=== PATIENT | male | born 1960 | race African-American/Black ===

== ENCOUNTER 2018-11-11 01:04 | Emergency (ER) | payer OTHER ==
--- NOTE | 2018-11-11 01:16 | PDOC ---
History of Present Illness - General Stated Complaint: METHADONE TREATMENT NEEDED Time Seen by Provider: 11/11/18 01:16 - History of Present Illness Initial Comments: 11/11/18 01:16 Mr. Lees is a 58 yo male w/ HIV, DM, in treatment with methadone who presents for evaluation of 1-2 day history of agitation with diarrhea. Patient reports he has not had his methadone in 3 days, prompting his symptoms. Denies any other symptoms. The patient denies chest pain, shortness of breath, headache and dizziness. Denies fever, chills, nausea, vomit, and constipation. Denies dysuria, frequency , urgency and hematuria. Past History - Past Medical History Allergies/Adverse Reactions: Allergies Allergy/AdvReac Type Severity Reaction Status Date / Time No Known Allergies Allergy Verified 08/18/17 11:10 Home Medications: Ambulatory Orders Unobtainable 08/18/17 COPD: No Diabetes: Yes - Suicide/Smoking/Psychosocial Hx Smoking History: Never smoked Review of Systems - Review of Systems Comments:: 11/11/18 01:16 GENERAL/CONSTITUTIONAL: No fever or chills. No weakness. HEAD, EYES, EARS, NOSE AND THROAT: No change in vision. No ear pain or discharge. No sore throat. CARDIOVASCULAR: No chest pain or shortness of breath RESPIRATORY: No cough, wheezing, or hemoptysis. GASTROINTESTINAL: +Diarrhea for the last day. No nausea, vomiting, or constipation. GENITOURINARY: No dysuria, frequency, or change in urination. MUSCULOSKELETAL: No joint or muscle swelling or pain. No neck or back pain. SKIN: No rash NEUROLOGIC: +Agitation/restlessness over last 1-2 days. No headache, vertigo, loss of consciousness, or change in strength/sensation. ENDOCRINE: No increased thirst. No abnormal weight change HEMATOLOGIC/LYMPHATIC: No anemia, easy bleeding, or history of blood clots. ALLERGIC/IMMUNOLOGIC: No hives or skin allergy. *Physical Exam - Physical Exam Comments: 11/11/18 01:16 GENERAL: +Patient extremely restless appearing. Awake, alert, and fully oriented , in no acute distress HEAD: No signs of trauma, normocephalic, atraumatic EYES: PERRLA, EOMI, sclera anicteric, conjunctiva clear ENT: Auricles normal inspection, hearing grossly normal, nares patent, oropharynx clear without exudates. Moist mucosa NECK: Normal ROM, supple, no lymphadenopathy, JVD, or masses LUNGS: No distress, speaks full sentences, clear to auscultation bilaterally HEART: Regular rate and rhythm, normal S1 and S2, no murmurs, rubs or gallops, peripheral pulses normal and equal bilaterally. ABDOMEN: Soft, nontender, normoactive bowel sounds. No guarding, no rebound. No masses EXTREMITIES: Normal inspection, Normal range of motion, no edema. No clubbing or cyanosis. NEUROLOGICAL: Cranial nerves II through XII grossly intact. Normal speech, normal gait, no focal sensorimotor deficits SKIN: Warm, Dry, normal turgor, no rashes or lesions noted. Medical Decision Making - Medical Decision Making 11/11/18 01:26 Mr. Lees is a 58 yo male w/ pmh as described who presents for evaluation of methadone withdrawal. Patient given 20mg methadone with improvement of symptoms. Discharging patient to home for further outpatient methadone treatment. *DC/Admit/Observation/Transfer Diagnosis at time of Disposition: Methadone dependence - Discharge Dispostion Disposition: HOME - Referrals - Patient Instructions Printed Discharge Instructions: Getting Treatment for Drug Addiction Additional Instructions: You were evaluated today in the emergency room for your methadone withdrawal. Please follow-up with methadone clinic tomorrow as discussed to resume your normal dosing. Follow-up with primary care provider on Monday for further evaluation. Return to ER if any pain, fever, chills, or other concerning symptoms. - Post Discharge Activity
--- NOTE | 2018-11-11 01:17 | PDOC ---
Attending Attestation - Resident Resident Name: David Araujo - ED Attending Attestation I have performed the following: I have examined & evaluated the patient, The case was reviewed & discussed with the resident, I agree w/resident's findings & plan - HPI HPI: 11/11/18 01:24 Pt hasnt had his methadone in 3 days and now comes for some. He has no other complaints. - Physicial Exam PE: 11/11/18 02:11 Agree with resident exam - Medical Decision Making 11/11/18 02:11 Pt will sent home with outpatient methadone clinic f/u
[2018-11-11] MEDS ORDERED: METHADONE HCL 10 MG TABLET PO ONE (01:22)
[2018-11-11] MEDS ORDERED: METHADONE HCL 10 MG TABLET ONE (01:28)
[2018-11-11 01:46] VITALS: BP 146/89; PULSE 98; TEMP 97.9; BMI 25.0
== END 2018-11-11 02:46 | disposition home or self-care (01) ==
LOC: JER 01:04
DX: F11.20 Opioid dependence, uncomplicated (principal); Z21 Asymptomatic human immunodeficiency virus [HIV] infection status
CPT/HCPCS: 99282-25

== ENCOUNTER 2018-11-30 11:50 | Inpatient (IN) | payer OTHER ==
[2018-11-30 12:24] VITALS: BMI 24.4
--- NOTE | 2018-11-30 14:04 | HP ---
COWS - Scale Resting Pulse: 1= [place] 81-100 Sweatin= Chills/Flushing Restless Observation: 0= Sits Still Pupil Size: 1= Pupils >than Normal Bone or Joint Aches: 2= Severe Diffuse Aches Runny Nose/ Eye Tearin= Runny Nose/Eyes GI Upset > 30mins: 0= None Tremor Observation: 2= Slight Tremor Visible Yawning Observation: 1= 1-2x During Session Anxiety or Irritability: 2=Irritable/Anxious Goose Flesh Skin: 0=Smooth Skin COWS Score: 12 CIWA Score - Admission Criteria [facility] Guidelines: Admission for Medically Managed Detox: Requires at least one of the followin. CIWA greater than 12 2. Seizures within the past 24 hours 3. Delirium tremens within the past 24 hours 4. Hallucinations within the past 24 hours 5. Acute intervention needed for co occurring medical disorder 6. Acute intervention needed for co occurring psychiatric disorder 7. Severe withdrawal that cannot be handled at a lower level of care (continued vomiting, continued diarrhea, abnormal vital signs) requiring intravenous medication and/or fluids 8. Admission [facility] Chief Complaint: PATIENT PRESENTS WITH HEROIN WITHDRAWAL SX. Allergies/Adverse Reactions: Allergies Allergy/AdvReac Type Severity Reaction Status Date / Time No Known Allergies Allergy Verified 11/11/18 01:43 History of Present Illness: PATIENT PRESENTS WITH HEROIN WITHDRAWAL SX. [facility] AND WAS A PATIENT AT [facility] UNTIL 3 WEEKS AGO. PATIENT STATES DOSE OF MTD 70MG BUT HAS NOT TAKEN MEDICATION FROM CLINIC X 3 WEEKS. PATIENT CURRENTLY SNIFFING HEROIN, UP TO 3-4 BAGS DAILY, LAST TIME HE USED WAS THIS MORNING. UDS + OPI. PATIENT REQUESTS TO RESTART MTD PROGRAM ONCE HE DETOXES OFF HEROIN. PATIENT INITIALLY STARTED USING HEROIN IV IN THE 1970S. HAS NOT USED IVDA X YEARS. PATIENT DENIES HX OF HEP. + HX OF HIV. REPORTS COMPLIANCE WITH MEDICATION BUT DOES NOT HAVE ANY MEDICATION WITH HIM. PATIENT REPORTS HX OF DM AND HTN. NAME OF MEDICATION AND PHARMACY UNABLE TO BE OBTAINED BY PATIENT. STATES HIS MEDS ARE DELIVERED TO HIM AND DOES NOT KNOW NAME OF PHARMACY. PATIENT DENIES SI/HI AND SUICIDE ATTEMPTS. PATIENT DENIES HX OF SEIZURES AND OD. + H/O BLACK OUTS. Exam Limitations: No Limitations - Ebola screening Have you traveled outside of the country in the last 21 days: No Have you had contact with anyone from an Ebola affected area: No Have you been sick,other than usual withdrawal symptoms: No Do you have a fever: No - Review of Systems Constitutional: Chills, Changes in sleep, Unintentional Wgt. Loss EENT: reports: Nose Congestion Respiratory: reports: No Symptoms reported Cardiac: reports: No Symptoms Reported GI: reports: Poor Appetite, Poor Fluid Intake : reports: No Symptoms Reported Musculoskeletal: reports: Back Pain, Muscle Pain Integumentary: reports: No Symptoms Reported Neuro: reports: Tremors Endocrine: reports: Unexplained Weight Loss Hematology: reports: No Symptoms Reported Psychiatric: reports: Anxious, other (REPORTS DATE 12/02/18.) Patient History - Patient Medical History Hx Anemia: No Hx Asthma: No Hx Chronic Obstructive Pulmonary Disease (COPD): No Hx Cancer: No Hx Cardiac Disorders: No Hx Congestive Heart Failure: No Hx Hypertension: Yes Hx Hypercholesterolemia: No Hx Pacemaker: No HX Cerebrovascular Accident: No Hx Seizures: No Hx Dementia: No Hx Diabetes: Yes Hx Gastrointestinal Disorders: No Hx Liver Disease: No Hx Genitourinary Disorders: No Hx Sexually Transmitted Disorders: No Hx Renal Disease (ESRD): No Hx Thyroid Disease: No Hx Human Immunodeficiency Virus (HIV): Yes (DX 1985, DID NOT PROVIDE MEDICATIONS ) Hx Hepatitis C: No Hx Depression: No Hx Suicide Attempt: No Hx Bipolar Disorder: No Hx Schizophrenia: No - Patient Surgical History Past Surgical History: No Anesthesia Reaction: No - PPD History Previous Implant?: Yes Documented Results: Negative w/o proof PPD to be Administered?: Yes - Smoking Cessation Smoking history: Never smoked Have you smoked in the past 12 months: No Hx Chewing Tobacco Use: No Initiated information on smoking cessation: No - Substance & Tx. History Hx Alcohol Use: No Hx Substance Use: Yes Substance Use Type: Heroin Hx Substance Use Treatment: Yes - Substances Abused Heroin Route: Inhalation Frequency: Daily Amount used: 3 BAGS Age of first use: 20 Date of Last Use: 11/30/18 Family Disease History - Family Disease History Family Disease History: Diabetes: Mother (ALIVE AND WELL) Admission Physical Exam BHS - Vital Signs Vital Signs: Vital Signs - 24 hr 11/30/18 12:22 Temperature 97.4 F L Pulse Rate 81 Respiratory 20 Rate Blood Pressure 115/72 - Physical General Appearance: Yes: No Apparent Distress, Appropriately Dressed, Thin, Tremorous, Anxious HEENTM: Yes: EOMI, Hearing grossly Normal, Normocephalic, Normal Voice, YVETTE, Pharynx Normal, Nasal Congestion Respiratory: Yes: Chest Non-Tender, Lungs Clear, Normal Breath Sounds, No Respiratory Distress, No Accessory Muscle Use Neck: Yes: No masses,lesions,Nodules, Supple, Trachea in good position Breast: Yes: Breast Exam Deferred Cardiology: Yes: Regular Rhythm, Regular Rate, S1, S2 Abdominal: Yes: Normal Bowel Sounds, Non Tender, Soft Genitourinary: Yes: Within Normal Limits Back: Yes: Normal Inspection, Muscle Spasm Musculoskeletal: Yes: full range of Motion, Gait Steady, Back pain, Muscle Pain Extremities: Yes: Normal Range of Motion, Tremors, Other (HYPIGMENTATION OF LOWER LEGS) Neurological: Yes: inpatient services rn II-XII NML intact, Fully Oriented, Alert, Motor Strength 5/5, Normal Response, Other (ANXIOUS) Integumentary: Yes: Normal Color, Dry, Warm, Other (HYPERPIGMENTED SKIN CHANGES OF LOWER LEGS) Lymphatic: Yes: Within Normal Limits Cleared for Admission [facility] - Detox or Rehab [facility] Level of Care: Medically Managed Detox Regimen/Protocol: Methadone [facility] Breath Alcohol Content Breath Alcohol Content: 0 Urine Drug Screen - Results Drug Screen Negative: No Urine Drug Screen Results: OPI-Opiates Inpatient Rehab Admission - Rehab Decision to Admit Inpatient rehab admission?: No
[2018-11-30] MEDS ORDERED: P-EPHED 60MG/TRIPROLIDI 2.5MG TABLET PO PRN (14:13)
[2018-11-30] MEDS ORDERED: LOPERAMIDE HCL 2 MG CAPSULE PO PRN (14:13)
[2018-11-30] MEDS ORDERED: MAG HYDROX/AL HYDROX/SIMETH 30 ML UNIT-DOSE CUP PO PRN (14:13)
[2018-11-30] MEDS ORDERED: MAGNESIUM HYDROX 2400MG/30ML ORAL SUSPENSION 30 ML CUP PO PRN (14:13)
[2018-11-30] MEDS ORDERED: MENTHOL/PHENOL 1 EACH UD MM PRN (14:13)
[2018-11-30] MEDS ORDERED: MAGNESIUM CITRATE 300 ML BOTTLE PO PRN (14:13)
[2018-11-30] MEDS ORDERED: IBUPROFEN 400 MG TABLET (FP) PO PRN (14:13)
[2018-11-30] MEDS ORDERED: guaiFENesin/D-METHORPHAN HB 10 ML UNIT-DOSE CUPS PO PRN (14:13)
[2018-11-30] MEDS ORDERED: hydrOXYzine PAMOATE 50 MG CAPSULE (FP) PO PRN (14:13)
[2018-11-30] MEDS ORDERED: ACETAMINOPHEN 325 MG TABLET (FP) PO PRN (14:13)
[2018-11-30] MEDS ORDERED: METHADONE HCL 10 MG TABLET (FOR DETOX USE ONLY) PO ONE ×2 (17:00→23:00)
[2018-11-30] MEDS: diazePAM 5 MG TABLET PO PRN ×2 (17:44→22:05)
[2018-11-30] MEDS: INSULIN SLIDING SCALE (NOVOLOG) 1 VIAL SQ SCH ×2 (17:50→21:01)
[2018-11-30] MEDS: THIAMINE HCL 100 MG TABLET (FP) PO SCH (22:04)
[2018-12-01] MEDS: INSULIN SLIDING SCALE (NOVOLOG) 1 VIAL SQ SCH ×4 (07:45→22:34)
[2018-12-01] MEDS ORDERED: METHADONE HCL 10 MG TABLET (FOR DETOX USE ONLY) PO ONE (10:00)
[2018-12-01] MEDS: diazePAM 5 MG TABLET PO PRN ×2 (10:12→22:32)
[2018-12-01] MEDS: PRENATAL VITAMINS W/ FOLIC ACID TABLET (FP) PO SCH (10:13)
[2018-12-01 11:20] LABS: ALBUMIN 4.1 g/dl (3.4-5.0); ALK PHOS 56 U/L (45-117); ANION GAP 4 MMOL/L (8-16); BILIRUBIN,TOTAL 0.5 mg/dL (0.2-1); BLOOD UREA NITROGEN 14 mg/dL (7-18); CALCIUM 8.9 mg/dL (8.5-10.1); CHLORIDE 107 mmol/L (98-107); CO2 30 mmol/L (21-32); CREATININE 1.2 mg/dL (0.55-1.3); GLUCOSE,RANDOM 99 mg/dL (74-106); POTASSIUM 4.4 mmol/L (3.5-5.1); SGOT/AST 11 U/L (15-37); SGPT/ALT 13 U/L (13-61); SODIUM 141 mmol/L (136-145); TOT PROT 7.4 g/dl (6.4-8.2)
[2018-12-01 11:38] LABS: HEMATOCRIT 34.3 % (35.4-49); HEMOGLOBIN 11.7 GM/dL (11.7-16.9); MCH 30.1 pg (25.7-33.7); MCHC 34.2 g/dl (32.0-35.9); MEAN CELL VOLUME 88.1 fl (80-96); MEAN PLT VOLUME 11.1 fl (7.5-11.1); PLATELET COUNT 122 K/MM3 (134-434); RBC 3.89 M/mm3 (4.00-5.60); RDW 14.2 % (11.9-15.9); WHITE BLOOD COUNT 4.6 K/mm3 (4.0-10.0)
[2018-12-01] MEDS ORDERED: FLU VACCINE QUAD 60 MCG/0.5 ML (MDV 18-19) IM ONE (12:00)
--- NOTE | 2018-12-01 13:22 | EKG ---
Test Reason : Blood Pressure : / mmHG Vent. Rate : 061 BPM Atrial Rate : 061 BPM P-R Int : 130 ms QRS Dur : 088 ms QT Int : 410 ms P-R-T Axes : 069 036 030 degrees QTc Int : 412 ms NORMAL SINUS RHYTHM NORMAL ECG NO PREVIOUS ECGS AVAILABLE Confirmed by DEA MENDENHALL MD ([id number]) on 12/01/2018 1:21:50 PM Referred By: Confirmed By:DEA MENDENHALL MD
--- NOTE | 2018-12-01 14:08 | PN ---
BHS COWS - Scale Resting Pulse: 0= [place] 80 or Below Sweatin= Chills/Flushing Restless Observation: 1= Difficult to Sit Still Pupil Size: 0= Normal to Room Light Bone or Joint Aches: 2= Severe Diffuse Aches Runny Nose/ Eye Tearin= Nasal Congestion GI Upset > 30mins: 0= None Tremor Observation of Outstretched Hands: 2= Slight Tremor Visible Yawning Observation: 1= 1-2x During Session Anxiety or Irritability: 2=Irritable/Anxious Goose Flesh Skin: 0=Smooth Skin COWS Score: 10 BHS Progress Note (SOAP) Subjective: Tremors, Anxious, Nasal Congestion, Body Aches. Objective: PATIENT A & O X 3, OBSERVED AMBULATING ON UNIT. IN NO ACUTE DISTRESS. 12/01/18 14:09 Vital Signs Temperature 97.2 F L 12/01/18 09:25 Pulse Rate 55 L 12/01/18 09:25 Respiratory Rate 18 12/01/18 09:25 Blood Pressure 131/82 12/01/18 09:25 O2 Sat by Pulse Oximetry (%) Laboratory Tests 11/30/18 11/30/18 12/01/18 15:43 17:46 06:00 WBC 4.6 RBC 3.89 L Hgb 11.7 Hct 34.3 L MCV 88.1 MCH 30.1 MCHC 34.2 RDW 14.2 Plt Count 122 L MPV 11.1 Sodium Potassium Chloride Carbon Dioxide Anion Gap BUN Creatinine Creat Clearance w eGFR POC Glucometer 101 141 Random Glucose Calcium Total Bilirubin AST ALT Alkaline Phosphatase Total Protein Albumin RPR Titer 12/01/18 12/01/18 12/01/18 06:00 06:00 07:10 WBC RBC Hgb Hct MCV MCH MCHC RDW Plt Count MPV Sodium 141 Potassium 4.4 Chloride 107 Carbon Dioxide 30 Anion Gap 4 L BUN 14 Creatinine 1.2 Creat Clearance w eGFR > 60 POC Glucometer 102 Random Glucose 99 Calcium 8.9 Total Bilirubin 0.5 AST 11 L ALT 13 Alkaline Phosphatase 56 Total Protein 7.4 Albumin 4.1 RPR Titer Nonreactive 12/01/18 11:41 WBC RBC Hgb Hct MCV MCH MCHC RDW Plt Count MPV Sodium Potassium Chloride Carbon Dioxide Anion Gap BUN Creatinine Creat Clearance w eGFR POC Glucometer 324 Random Glucose Calcium Total Bilirubin AST ALT Alkaline Phosphatase Total Protein Albumin RPR Titer LABS NOTED. Assessment: 12/01/18 14:10 WITHDRAWAL SYMPTOMS. ANEMIA. THROMBOCYTOPENIA. 12/01/18 14:12 Plan: CONTINUE DETOX. INCREASE DAILY PO FLUID INTAKE. PATIENT IS CURRENTLY RECEIVING DAILY MVI CONTAINING B VITAMINS AND IRON WHILE ADMITTED FOR DETOX.
[2018-12-01] MEDS: MINERAL OIL/PETROLAT/WATER TOPICAL CREAM 454 GM JAR TP SCH ×2 (14:14→22:34)
[2018-12-01] MEDS: THIAMINE HCL 100 MG TABLET (FP) PO SCH (22:32)
[2018-12-02] MEDS: INSULIN SLIDING SCALE (NOVOLOG) 1 VIAL SQ SCH ×5 (06:14→22:11)
[2018-12-02] MEDS ORDERED: METHADONE HCL 5 MG TABLET (FOR DETOX USE ONLY) PO ONE (10:00)
[2018-12-02] MEDS: PRENATAL VITAMINS W/ FOLIC ACID TABLET (FP) PO SCH (10:16)
[2018-12-02] MEDS: diazePAM 5 MG TABLET PO PRN (10:17)
[2018-12-02] MEDS: MINERAL OIL/PETROLAT/WATER TOPICAL CREAM 454 GM JAR TP SCH ×2 (11:54→22:10)
--- NOTE | 2018-12-02 15:32 | PN ---
BHS COWS - Scale Resting Pulse: 0= [place] 80 or Below Sweatin= Chills/Flushing Restless Observation: 0= Sits Still Pupil Size: 1= Pupils >than Normal Bone or Joint Aches: 1= Mild Discomfort Runny Nose/ Eye Tearin= Nasal Congestion GI Upset > 30mins: 1= Stomach Cramp Tremor Observation of Outstretched Hands: 1= Tremor [place], Not Seen Yawning Observation: 1= 1-2x During Session Anxiety or Irritability: 1=Feels Anxious/Irritable Goose Flesh Skin: 0=Smooth Skin COWS Score: 8 BHS Progress Note (SOAP) Subjective: body aches joints pain tremor sweating Objective: 12/02/18 15:31 Vital Signs Temperature 98.2 F 12/02/18 09:22 Pulse Rate 58 L 12/02/18 09:22 Respiratory Rate 20 12/02/18 09:22 Blood Pressure 150/83 12/02/18 09:22 O2 Sat by Pulse Oximetry (%) Laboratory Last Values WBC 4.6 K/mm3 (4.0-10.0) 12/01/18 06:00 RBC 3.89 M/mm3 (4.00-5.60) L 12/01/18 06:00 Hgb 11.7 GM/dL (11.7-16.9) 12/01/18 06:00 Hct 34.3 % (35.4-49) L 12/01/18 06:00 MCV 88.1 fl (80-96) 12/01/18 06:00 MCH 30.1 pg (25.7-33.7) 12/01/18 06:00 MCHC 34.2 g/dl (32.0-35.9) 12/01/18 06:00 RDW 14.2 % (11.9-15.9) 12/01/18 06:00 Plt Count 122 K/MM3 (134-434) L 12/01/18 06:00 MPV 11.1 fl (7.5-11.1) 12/01/18 06:00 Sodium 141 mmol/L (136-145) 12/01/18 06:00 Potassium 4.4 mmol/L (3.5-5.1) 12/01/18 06:00 Chloride 107 mmol/L (98-107) 12/01/18 06:00 Carbon Dioxide 30 mmol/L (21-32) 12/01/18 06:00 Anion Gap 4 MMOL/L (8-16) L 12/01/18 06:00 BUN 14 mg/dL (7-18) 12/01/18 06:00 Creatinine 1.2 mg/dL (0.55-1.3) 12/01/18 06:00 Creat Clearance w eGFR > 60 (>60) 12/01/18 06:00 POC Glucometer 115 UNITS (80-120) 12/02/18 11:46 Random Glucose 99 mg/dL (74-106) 12/01/18 06:00 Calcium 8.9 mg/dL (8.5-10.1) 12/01/18 06:00 Total Bilirubin 0.5 mg/dL (0.2-1) 12/01/18 06:00 AST 11 U/L (15-37) L 12/01/18 06:00 ALT 13 U/L (13-61) 12/01/18 06:00 Alkaline Phosphatase 56 U/L (45-117) 12/01/18 06:00 Total Protein 7.4 g/dl (6.4-8.2) 12/01/18 06:00 Albumin 4.1 g/dl (3.4-5.0) 12/01/18 06:00 RPR Titer Nonreactive (NONREACTIVE) 12/01/18 06:00 lab noted Assessment: 12/02/18 15:32 withdraawl sx dry skin Plan: continue detox
[2018-12-02] MEDS ORDERED: MINERAL OIL/PETROLAT/WATER TOPICAL CREAM 113 GM JAR TP SCH (22:00)
[2018-12-02] MEDS: THIAMINE HCL 100 MG TABLET (FP) PO SCH (22:09)
[2018-12-03] MEDS: diazePAM 5 MG TABLET PO PRN ×2 (05:10→10:07)
[2018-12-03] MEDS: INSULIN SLIDING SCALE (NOVOLOG) 1 VIAL SQ SCH ×4 (06:47→21:45)
--- NOTE | 2018-12-03 09:33 | PN ---
BHS COWS - Scale Resting Pulse: 0= [place] 80 or Below Sweatin= Chills/Flushing Restless Observation: 0= Sits Still Pupil Size: 1= Pupils >than Normal Bone or Joint Aches: 1= Mild Discomfort Runny Nose/ Eye Tearin= Nasal Congestion GI Upset > 30mins: 1= Stomach Cramp Tremor Observation of Outstretched Hands: 1= Tremor [place], Not Seen Yawning Observation: 0= None Anxiety or Irritability: 1=Feels Anxious/Irritable Goose Flesh Skin: 0=Smooth Skin COWS Score: 7 BHS Progress Note (SOAP) Subjective: body aches low energy trouble sleeping at night otherwise feeling ok Objective: 12/03/18 09:33 Vital Signs Temperature 98.1 F 12/03/18 09:10 Pulse Rate 63 12/03/18 09:10 Respiratory Rate 18 12/03/18 09:10 Blood Pressure 120/70 12/03/18 09:10 O2 Sat by Pulse Oximetry (%) Laboratory Last Values WBC 4.6 K/mm3 (4.0-10.0) 12/01/18 06:00 RBC 3.89 M/mm3 (4.00-5.60) L 12/01/18 06:00 Hgb 11.7 GM/dL (11.7-16.9) 12/01/18 06:00 Hct 34.3 % (35.4-49) L 12/01/18 06:00 MCV 88.1 fl (80-96) 12/01/18 06:00 MCH 30.1 pg (25.7-33.7) 12/01/18 06:00 MCHC 34.2 g/dl (32.0-35.9) 12/01/18 06:00 RDW 14.2 % (11.9-15.9) 12/01/18 06:00 Plt Count 122 K/MM3 (134-434) L 12/01/18 06:00 MPV 11.1 fl (7.5-11.1) 12/01/18 06:00 Sodium 141 mmol/L (136-145) 12/01/18 06:00 Potassium 4.4 mmol/L (3.5-5.1) 12/01/18 06:00 Chloride 107 mmol/L (98-107) 12/01/18 06:00 Carbon Dioxide 30 mmol/L (21-32) 12/01/18 06:00 Anion Gap 4 MMOL/L (8-16) L 12/01/18 06:00 BUN 14 mg/dL (7-18) 12/01/18 06:00 Creatinine 1.2 mg/dL (0.55-1.3) 12/01/18 06:00 Creat Clearance w eGFR > 60 (>60) 12/01/18 06:00 POC Glucometer 171 UNITS (80-120) 12/03/18 05:10 Random Glucose 99 mg/dL (74-106) 12/01/18 06:00 Calcium 8.9 mg/dL (8.5-10.1) 12/01/18 06:00 Total Bilirubin 0.5 mg/dL (0.2-1) 12/01/18 06:00 AST 11 U/L (15-37) L 12/01/18 06:00 ALT 13 U/L (13-61) 12/01/18 06:00 Alkaline Phosphatase 56 U/L (45-117) 12/01/18 06:00 Total Protein 7.4 g/dl (6.4-8.2) 12/01/18 06:00 Albumin 4.1 g/dl (3.4-5.0) 12/01/18 06:00 RPR Titer Nonreactive (NONREACTIVE) 12/01/18 06:00 lab noted Assessment: 12/03/18 09:34 opiate withdrawal sx Plan: continue detox
[2018-12-03] MEDS ORDERED: METHADONE HCL 5 MG TABLET (FOR DETOX USE ONLY) PO ONE (10:00)
[2018-12-03] MEDS: PRENATAL VITAMINS W/ FOLIC ACID TABLET (FP) PO SCH (10:07)
[2018-12-03] MEDS: MINERAL OIL/PETROLAT/WATER TOPICAL CREAM 454 GM JAR TP SCH (11:29)
[2018-12-03 18:25] LABS: URINE APPEARANCE CLEAR; URINE BILIRUBIN NEGATIVE (<2.0 mg/dL); URINE COLOR LTYELLOW; URINE GLUCOSE (UA) 1+ (NEGATIVE); URINE KETONE NEGATIVE (NEGATIVE); URINE LEUK ESTERASE NEGATIVE (NEGATIVE); URINE NITRITE NEGATIVE (NEGATIVE); URINE PROTEIN NEGATIVE (NEGATIVE); URINE UROBILINOGEN NEGATIVE mg/dL (0.2-1.0)
[2018-12-03] MEDS: THIAMINE HCL 100 MG TABLET (FP) PO SCH (21:45)
[2018-12-03] MEDS: MELATONIN 5 MG TABLETS PO PRN (21:45)
[2018-12-03] MEDS: MINERAL OIL/PETROLAT/WATER TOPICAL CREAM 113 GM JAR TP SCH (21:47)
[2018-12-04] MEDS: INSULIN SLIDING SCALE (NOVOLOG) 1 VIAL SQ SCH ×4 (07:00→22:21)
[2018-12-04] MEDS ORDERED: METHADONE HCL 10 MG TABLET (FOR DETOX USE ONLY) PO ONE (10:00)
--- NOTE | 2018-12-04 10:06 | PN ---
BHS COWS - Scale Resting Pulse: 0= [place] 80 or Below Sweatin= Chills/Flushing Restless Observation: 0= Sits Still Pupil Size: 0= Normal to Room Light Bone or Joint Aches: 1= Mild Discomfort Runny Nose/ Eye Tearin= Nasal Congestion GI Upset > 30mins: 0= None Tremor Observation of Outstretched Hands: 0= None Yawning Observation: 0= None Anxiety or Irritability: 1=Feels Anxious/Irritable Goose Flesh Skin: 0=Smooth Skin COWS Score: 4 BHS Progress Note (SOAP) Subjective: feeling better mild tremor less body aches social with peers in day room discuss aftercare Objective: 12/04/18 10:04 Vital Signs Temperature 97.9 F 12/04/18 09:24 Pulse Rate 83 12/04/18 09:24 Respiratory Rate 18 12/04/18 09:24 Blood Pressure 105/71 12/04/18 09:24 O2 Sat by Pulse Oximetry (%) Laboratory Last Values WBC 4.6 K/mm3 (4.0-10.0) 12/01/18 06:00 RBC 3.89 M/mm3 (4.00-5.60) L 12/01/18 06:00 Hgb 11.7 GM/dL (11.7-16.9) 12/01/18 06:00 Hct 34.3 % (35.4-49) L 12/01/18 06:00 MCV 88.1 fl (80-96) 12/01/18 06:00 MCH 30.1 pg (25.7-33.7) 12/01/18 06:00 MCHC 34.2 g/dl (32.0-35.9) 12/01/18 06:00 RDW 14.2 % (11.9-15.9) 12/01/18 06:00 Plt Count 122 K/MM3 (134-434) L 12/01/18 06:00 MPV 11.1 fl (7.5-11.1) 12/01/18 06:00 Sodium 141 mmol/L (136-145) 12/01/18 06:00 Potassium 4.4 mmol/L (3.5-5.1) 12/01/18 06:00 Chloride 107 mmol/L (98-107) 12/01/18 06:00 Carbon Dioxide 30 mmol/L (21-32) 12/01/18 06:00 Anion Gap 4 MMOL/L (8-16) L 12/01/18 06:00 BUN 14 mg/dL (7-18) 12/01/18 06:00 Creatinine 1.2 mg/dL (0.55-1.3) 12/01/18 06:00 Creat Clearance w eGFR > 60 (>60) 12/01/18 06:00 POC Glucometer 154 UNITS (80-120) 12/04/18 05:12 Random Glucose 99 mg/dL (74-106) 12/01/18 06:00 Calcium 8.9 mg/dL (8.5-10.1) 12/01/18 06:00 Total Bilirubin 0.5 mg/dL (0.2-1) 12/01/18 06:00 AST 11 U/L (15-37) L 12/01/18 06:00 ALT 13 U/L (13-61) 12/01/18 06:00 Alkaline Phosphatase 56 U/L (45-117) 12/01/18 06:00 Total Protein 7.4 g/dl (6.4-8.2) 12/01/18 06:00 Albumin 4.1 g/dl (3.4-5.0) 12/01/18 06:00 Urine Color Ltyellow 12/03/18 16:50 Urine Appearance Clear 12/03/18 16:50 Urine pH 6.0 (5.0-8.0) 12/03/18 16:50 Ur Specific [place] 1.012 (1.010-1.035) 12/03/18 16:50 Urine Protein Negative (NEGATIVE) 12/03/18 16:50 Urine Glucose (UA) 1+ (NEGATIVE) H 12/03/18 16:50 Urine Ketones Negative (NEGATIVE) 12/03/18 16:50 Urine Blood Negative (NEGATIVE) 12/03/18 16:50 Urine Nitrite Negative (NEGATIVE) 12/03/18 16:50 Urine Bilirubin Negative (<2.0 mg/dL) 12/03/18 16:50 Urine Urobilinogen Negative mg/dL (0.2-1.0) 12/03/18 16:50 Ur Leukocyte Esterase Negative (NEGATIVE) 12/03/18 16:50 RPR Titer Nonreactive (NONREACTIVE) 12/01/18 06:00 lab noted patient agrees return to his infectious disease specialist for medical mental issues Assessment: 12/04/18 10:05 mild withdrawal sx Plan: continue detox
[2018-12-04] MEDS: PRENATAL VITAMINS W/ FOLIC ACID TABLET (FP) PO SCH (10:12)
[2018-12-04] MEDS: MINERAL OIL/PETROLAT/WATER TOPICAL CREAM 113 GM JAR TP SCH ×2 (10:13→22:20)
[2018-12-04] MEDS: MELATONIN 5 MG TABLETS PO PRN (22:22)
[2018-12-04] MEDS: THIAMINE HCL 100 MG TABLET (FP) PO SCH (22:22)
[2018-12-05] MEDS ORDERED: METHADONE HCL 5 MG TABLET (FOR DETOX USE ONLY) PO ONE (06:00)
[2018-12-05 06:24] VITALS: BP 139/75; PULSE 56; TEMP 97.6
[2018-12-05] MEDS: INSULIN SLIDING SCALE (NOVOLOG) 1 VIAL SQ SCH (07:19)
--- NOTE | 2018-12-05 10:40 | DS ---
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 recommend the patient aftercare at [facility] for medication assisted treatment program - Physical Exam Results Vital Signs: Vital Signs Temperature 97.6 F 12/05/18 06:23 Pulse Rate 56 L 12/05/18 06:23 Respiratory Rate 18 12/05/18 06:23 Blood Pressure 139/75 12/05/18 06:23 O2 Sat by Pulse Oximetry (%) Pertinent Admission Physical Exam Findings: opiate withdrawal sx Laboratory Last Values WBC 4.6 K/mm3 (4.0-10.0) 12/01/18 06:00 RBC 3.89 M/mm3 (4.00-5.60) L 12/01/18 06:00 Hgb 11.7 GM/dL (11.7-16.9) 12/01/18 06:00 Hct 34.3 % (35.4-49) L 12/01/18 06:00 MCV 88.1 fl (80-96) 12/01/18 06:00 MCH 30.1 pg (25.7-33.7) 12/01/18 06:00 MCHC 34.2 g/dl (32.0-35.9) 12/01/18 06:00 RDW 14.2 % (11.9-15.9) 12/01/18 06:00 Plt Count 122 K/MM3 (134-434) L 12/01/18 06:00 MPV 11.1 fl (7.5-11.1) 12/01/18 06:00 Sodium 141 mmol/L (136-145) 12/01/18 06:00 Potassium 4.4 mmol/L (3.5-5.1) 12/01/18 06:00 Chloride 107 mmol/L (98-107) 12/01/18 06:00 Carbon Dioxide 30 mmol/L (21-32) 12/01/18 06:00 Anion Gap 4 MMOL/L (8-16) L 12/01/18 06:00 BUN 14 mg/dL (7-18) 12/01/18 06:00 Creatinine 1.2 mg/dL (0.55-1.3) 12/01/18 06:00 Creat Clearance w eGFR > 60 (>60) 12/01/18 06:00 POC Glucometer 176 UNITS (80-120) 12/05/18 05:12 Random Glucose 99 mg/dL (74-106) 12/01/18 06:00 Calcium 8.9 mg/dL (8.5-10.1) 12/01/18 06:00 Total Bilirubin 0.5 mg/dL (0.2-1) 12/01/18 06:00 AST 11 U/L (15-37) L 12/01/18 06:00 ALT 13 U/L (13-61) 12/01/18 06:00 Alkaline Phosphatase 56 U/L (45-117) 12/01/18 06:00 Total Protein 7.4 g/dl (6.4-8.2) 12/01/18 06:00 Albumin 4.1 g/dl (3.4-5.0) 12/01/18 06:00 Urine Color Ltyellow 12/03/18 16:50 Urine Appearance Clear 12/03/18 16:50 Urine pH 6.0 (5.0-8.0) 12/03/18 16:50 Ur Specific [place] 1.012 (1.010-1.035) 12/03/18 16:50 Urine Protein Negative (NEGATIVE) 12/03/18 16:50 Urine Glucose (UA) 1+ (NEGATIVE) H 12/03/18 16:50 Urine Ketones Negative (NEGATIVE) 12/03/18 16:50 Urine Blood Negative (NEGATIVE) 12/03/18 16:50 Urine Nitrite Negative (NEGATIVE) 12/03/18 16:50 Urine Bilirubin Negative (<2.0 mg/dL) 12/03/18 16:50 Urine Urobilinogen Negative mg/dL (0.2-1.0) 12/03/18 16:50 Ur Leukocyte Esterase Negative (NEGATIVE) 12/03/18 16:50 RPR Titer Nonreactive (NONREACTIVE) 12/01/18 06:00 lab noted - Treatment Hospital Course: Detox Protocol Followed, Detoxed Safely, Responded well, Discharged Condition Good, Rehab Referral Accepted Patient has Accepted a Rehab Referral to: new focus - Medication Discharge Medications: Ambulatory Orders Naloxone HCl [Narcan] 4 mg NS ASDIR PRN #1 spray 12/04/18 - Diagnosis (1) Opioid dependence with withdrawal Current Visit: Yes Status: Acute - AMA Did Patient Leave Against Medical Advice: No
== END 2018-12-05 09:10 | disposition home or self-care (01) | DRG 897 ==
LOC: YASAS 11:50 → Y3N 16:26
PROVIDERS: ADMIT Surgery; ATTEND Surgery
PROC: HZ2ZZZZ Detoxification Services for Substance Abuse Treatment (ICD-10-PCS; principal; 2018-11-30)
DX: F11.23 Opioid dependence with withdrawal (principal); I10 Essential (primary) hypertension; L98.8 Other specified disorders of the skin and subcutaneous tissue; D64.9 Anemia, unspecified; D69.6 Thrombocytopenia, unspecified; E11.9 Type 2 diabetes mellitus without complications; Z21 Asymptomatic human immunodeficiency virus [HIV] infection status
CPT/HCPCS: 36415; 80053; 81003; 82962; 85027; 86593; 93005; 93010

== ENCOUNTER → 2019-06-12 | Outpatient (CLI) | payer OTHER | LOC: YHH 13:36 ==